=== PATIENT | male | born 1965 | race Caucasian/White ===

== ENCOUNTER 2021-12-11 10:55 | Emergency (ER) | payer BC ==
[2021-12-11 11:39] LABS: HEMOGLOBIN 15.2 gm/dl (14.0-17.5); RED BLOOD COUNT 4.87 M/UL (4.20-5.50); WHITE BLOOD COUNT 8.3 K/UL (4.5-11.0)
[2021-12-11 12:20] LABS: BUN/CREATININE RATIO 27 (0-10)
[2021-12-11] MEDS ORDERED: GLUCOPHAGE 500500 MG PO (15:51)
[2021-12-11] MEDS ORDERED: BENZONATATE200 MG PO (15:51)
== END 2021-12-11 15:57 | disposition home or self-care (01) ==
LOC: ER1 10:55
PROVIDERS: Emergency Medicine
DX: R73.9 Hyperglycemia, unspecified (principal); I10 Essential (primary) hypertension; R06.02 Shortness of breath
CPT/HCPCS: 71045; 80053; 82962; 85025; 85379; 99285